=== PATIENT | female | born 1940 | race Two or more races ===

== ENCOUNTER 2019-01-09 13:14 | Outpatient (CLI) | payer OTHER | END 2019-01-09 13:28 | disposition home or self-care (01) | LOC: RAD 501 13:14 | DX: M54.2 Cervicalgia (principal) ==

== ENCOUNTER 2019-01-14 11:06 | Emergency (ER) | payer OTHER ==
[~2019-01-14] VITALS: Ht 154.9 cm; Wt 61.7 kg
== END 2019-01-14 18:07 | disposition home or self-care (01) ==
LOC: CPU-OBS 11:06 → ER 11:06
DX: R07.89 Other chest pain (principal)

== ENCOUNTER 2019-01-18 11:02 | Outpatient (CLI) | payer OTHER | END 2019-01-18 12:00 | disposition home or self-care (01) | LOC: NUCLEAR 11:02 | DX: M81.0 Age-related osteoporosis without current pathological fracture (principal) ==

== ENCOUNTER 2019-01-18 11:03 | Outpatient (CLI) | payer OTHER | END 2019-01-18 11:09 | disposition home or self-care (01) | LOC: MAMO-SONO 11:03 | DX: Z12.31 Encounter for screening mammogram for malignant neoplasm of breast (principal); Z87.898 Personal history of other specified conditions; N63.10 Unspecified lump in the right breast, unspecified quadrant; N63.20 Unspecified lump in the left breast, unspecified quadrant; N60.11 Diffuse cystic mastopathy of right breast; N60.12 Diffuse cystic mastopathy of left breast ==

== ENCOUNTER 2019-01-18 16:12 | Outpatient (CLI) | payer OTHER | END 2019-01-18 16:13 | disposition home or self-care (01) | LOC: LAB 16:12 | DX: I10 Essential (primary) hypertension (principal); E11.9 Type 2 diabetes mellitus without complications; E03.8 Other specified hypothyroidism; E78.2 Mixed hyperlipidemia; Z12.11 Encounter for screening for malignant neoplasm of colon; M81.0 Age-related osteoporosis without current pathological fracture; E55.9 Vitamin D deficiency, unspecified ==

== ENCOUNTER → 2019-02-02 | Outpatient (CLI) | payer OTHER | END | disposition home or self-care (01) | LOC: NUCLEAR 07:00 | DX: I20.0 Unstable angina (principal) | CPT/HCPCS: 78452; 93017; A9500 ==

== ENCOUNTER 2019-12-18 14:01 | Outpatient (CLI) | payer OTHER | END 2019-12-18 14:13 | disposition home or self-care (01) | LOC: RAD 14:01 | DX: S42.91XA Fracture of right shoulder girdle, part unspecified, initial encounter for closed fracture (principal); M75.41 Impingement syndrome of right shoulder ==

== ENCOUNTER → 2020-04-23 | Outpatient (CLI) | payer OTHER | END | disposition home or self-care (01) | LOC: RAD 12:29 | PROVIDERS: ATTEND Ophthalmology | DX: Z98.42 Cataract extraction status, left eye (principal) ==

== ENCOUNTER 2022-08-24 12:33 | Outpatient (CLI) | payer OTHER | END 2022-08-24 12:34 | disposition home or self-care (01) | LOC: NUCLEAR 12:33 | PROVIDERS: ATTEND Internal Medicine Cardiovascular Disease | DX: M81.0 Age-related osteoporosis without current pathological fracture (principal) ==

== ENCOUNTER 2022-08-24 13:53 | Outpatient (CLI) | payer OTHER | END 2022-08-24 13:54 | disposition home or self-care (01) | LOC: MAMO-SONO 13:53 | PROVIDERS: ATTEND Internal Medicine Cardiovascular Disease | DX: N63.11 Unspecified lump in the right breast, upper outer quadrant (principal) ==

== ENCOUNTER 2023-09-21 12:05 | Outpatient (CLI) | payer OTHER | END 2023-09-21 12:21 | disposition home or self-care (01) | LOC: MAMO-SONO 12:05 | PROVIDERS: ATTEND Internal Medicine Cardiovascular Disease | DX: Z12.31 Encounter for screening mammogram for malignant neoplasm of breast (principal); N60.12 Diffuse cystic mastopathy of left breast ==

== ENCOUNTER 2024-12-11 09:46 | Outpatient (CLI) | payer OTHER | END 2024-12-11 09:47 | disposition home or self-care (01) | LOC: NUCLEAR 09:46 | PROVIDERS: ATTEND Internal Medicine Cardiovascular Disease | DX: M81.0 Age-related osteoporosis without current pathological fracture (principal); E55.9 Vitamin D deficiency, unspecified ==

== ENCOUNTER 2024-12-11 10:30 | Outpatient (CLI) | payer OTHER | END 2024-12-11 10:35 | disposition home or self-care (01) | LOC: MAMO-SONO 10:30 | PROVIDERS: ATTEND Internal Medicine Cardiovascular Disease | DX: N60.11 Diffuse cystic mastopathy of right breast (principal); N60.12 Diffuse cystic mastopathy of left breast; Z12.31 Encounter for screening mammogram for malignant neoplasm of breast ==